=== PATIENT | female | born 1975 | race Caucasian/White ===

== ENCOUNTER 2023-10-23 05:45 | Day surgery (SDC) | payer MEDICAID ==
[2023-10-17 09:29] LABS: BASOPHILS % (AUTO) 0.3 % (0-1); EOSINOPHILS # (AUTO) 0.1 X10'3 (0-0.9); EOSINOPHILS % (AUTO) 2.3 % (0-6); LYMPHOCYTES # (AUTO) 1.6 X10'3 (1.1-4.8); LYMPHOCYTES % (AUTO) 32.7 % (21-51); MEAN CORPUSCULAR HEMOGLOBIN 29.2 PG (27.0-31.0); MEAN CORPUSCULAR HGB CONC 33.3 g/dL (33.0-36.5); MEAN CORPUSCULAR VOLUME 87.7 FL (78-98); MEAN PLATELET VOLUME 7.7 FL (7.4-10.4); MONOCYTES # (AUTO) 0.3 X10'3 (0-0.9); MONOCYTES % (AUTO) 5.5 % (2-12); NEUTROPHILS % (AUTO) 59.2 % (42-75); PRE OP HEMATOCRIT 34.8 % (35.0-45.0); PRE OP HEMOGLOBIN 11.6 g/dL (12.0-16.0); PRE OP PLATELET COUNT 350 X10'3 (140-440); RED BLOOD COUNT 3.97 X10'6 (4.20-5.60); RED CELL DISTRIBUTION WIDTH 13.3 % (11.5-14.5)
[2023-10-17 10:04] LABS: ALBUMIN/GLOBULIN RATIO 1.1 (1.1-1.5); ALKALINE PHOSPHATASE 74 IU/L (46-116); BLOOD UREA NITROGEN 9 MG/DL (7-18); BUN/CREATININE RATIO 10.3 (10.0-20.0); CALCIUM 8.5 MG/DL (8.5-10.1); CHLORIDE 106 MMOL/L (99-107); CREATININE 0.87 MG/DL (0.40-0.90); PRE OP ALT 11 U/L (30-65); PRE OP ANION GAP 8 (8-16); PRE OP AST 16 U/L (10-37); PRE OP BILIRUB, TOTAL 0.7 MG/DL (0.0-1.0); PRE OP GLUCOSE 94 MG/DL (70-104); PRE OP POTASSIUM 3.7 MMOL/L (3.4-5.1); PRE OP SODIUM 140 MMOL/L (135-145); TOTAL CARBON DIOXIDE 26.5 MMOL/L (24-32); TOTAL PROTEIN 7.5 G/DL (6.4-8.2); eGFR 70 ML/MIN
[2023-10-23] VITALS (9 sets, daily range): BP systolic 79–119; BP diastolic 32–70; PULSE 68–86; RESP 13–16; TEMP 98; O2SAT 93–100
[~2023-10-23] VITALS: Ht 167.6 cm; Wt 105.9 kg
[2023-10-23] MEDS: cefazolin 2gm/D5W 100mL 100 ML IV ONE (05:30)
[~2023-10-23 05:45] MED LIST: ACET-1025 PO; BETA15CR4 TOP; MULT-1085 PO; OMEP20CA16 PO; PSYL0.4C7; TIRZ5PEN3 IM
[2023-10-23] MEDS: ringers solution, lacted 1,000 ML IV SCH (06:24)
[2023-10-23] MEDS: famotidine 20mg tablet PO ONE (06:24)
[2023-10-23] MEDS ORDERED: LIDOcaine 1% (10mg/ml)w/preservative inj. 20ml MDV ONE (06:56)
[2023-10-23] MEDS ORDERED: BUPIVAcaine 2.5mg/ml inj 50ml vial (contains preservative) ONE (06:56)
[2023-10-23] MEDS ORDERED: BUPIVAcaine/PF 2.5mg/ml (0.25%) 10ml vial ONE (06:57)
[2023-10-23] MEDS ORDERED: fentaNYL/PF 50MCG/1 ML 2ML syringe ONE (07:18)
[2023-10-23] MEDS ORDERED: MIDAZolam 1 MG/ML 5ML VIAL ONE (07:18)
[2023-10-23] MEDS ORDERED: ondansetron/PF 4mg/2ml inj ONE (07:19)
[2023-10-23] MEDS ORDERED: LIDOcaine 2% (20mg/ml) 5ml vial ONE (07:19)
[2023-10-23] MEDS ORDERED: dexamethasone sod phosphate 4mg/ml inj. ONE (07:19)
[2023-10-23] MEDS ORDERED: propofol inj 20 ML IV ONE (07:19)
[2023-10-23] MEDS ORDERED: ringers solution, lacted 1,000 ML IV SCH (07:25)
[2023-10-23] MEDS ORDERED: morphine 4 MG/ML inj SYRINge IV PRN (07:25)
[2023-10-23] MEDS ORDERED: labetalol 20mg/4ml (5mg/ml) syringe IV PRN (07:25)
[2023-10-23] MEDS ORDERED: hydrALAZINE 20mg/ml inj. IV PRN (07:25)
[2023-10-23] MEDS ORDERED: morphine 2 MG/ML inj. syringe IV PRN (07:25)
[2023-10-23] MEDS ORDERED: fentaNYL/PF 50MCG/1 ML 2ML syringe IV PRN ×2 (07:25)
[2023-10-23] MEDS ORDERED: ondansetron/PF 4mg/2ml inj IV PRN (07:25)
[2023-10-23] MEDS ORDERED: sevoflurane 250ml liquid IH ONE (07:39)
[2023-10-23] MEDS ORDERED: acetaminophen 1,000mg/100ml IV 100 ML IV ONE (08:05)
[2023-10-23] MEDS: BUPIVAcaine/PF 2.5mg/ml (0.25%) 10ml vial IJ ONE (09:16)
== END 2023-10-23 10:13 | disposition home or self-care (01) ==
LOC: PAS 05:45
PROVIDERS: ATTEND Surgery
DX: N60.92 Unspecified benign mammary dysplasia of left breast (principal)
CPT/HCPCS: 19301; 36415; 80053; 82948; 85025; J0131; J0690; J1100; J2250; J2405; J2704; J3010; J3490; J7030; J7120; Z7506; Z7508; Z7512; A4215; A4618; A6449; A7000

== ENCOUNTER 2024-04-03 16:10 | Outpatient (CLI) | payer MEDICAID ==
[2024-04-03 16:42] LABS: BASOPHILS % (AUTO) 0.3 % (0-1); EOSINOPHILS # (AUTO) 0.3 X10'3 (0-0.9); EOSINOPHILS % (AUTO) 3.8 % (0-6); HEMATOCRIT 34.4 % (35.0-45.0); HEMOGLOBIN 11.8 g/dl (12.0-16.0); LYMPHOCYTES # (AUTO) 2.5 X10'3 (1.1-4.8); LYMPHOCYTES % (AUTO) 32.3 % (21-51); MEAN CORPUSCULAR HGB CONC 34.2 g/dL (33.0-36.5); MEAN CORPUSCULAR VOLUME 87.6 FL (78-98); MEAN PLATELET VOLUME 7.4 FL (7.4-10.4); MONOCYTES # (AUTO) 0.3 X10'3 (0-0.9); MONOCYTES % (AUTO) 4.3 % (2-12); NEUTROPHILS # (AUTO) 4.6 X10'3 (1.8-7.7); NEUTROPHILS % (AUTO) 59.3 % (42-75); PLATELET COUNT 370 X10'3 (140-440); RED BLOOD COUNT 3.93 X10'6 (4.20-5.60); RED CELL DISTRIBUTION WIDTH 13.3 % (11.5-14.5); WHITE BLOOD COUNT 7.8 X10'3 (4.5-11.0)
[2024-04-03 16:54] LABS: % IRON SATURATION 44 % (11-46); IRON 131 UG/DL (49-151); TOTAL IRON BINDING CAPACITY 296 UG/DL (259-388)
[2024-04-03 17:10] LABS: ALANINE AMINOTRANSFERASE 14 U/L (12-78); ALBUMIN/GLOBULIN RATIO 1.1 (1.1-1.5); ALKALINE PHOSPHATASE 84 IU/L (46-116); ANION GAP 12 (8-16); ASPARTATE AMINO TRANSFERASE 9 U/L (10-37); BILIRUBIN,TOTAL 0.6 MG/DL (0.1-1.0); BLOOD UREA NITROGEN 9 MG/DL (7-18); BUN/CREATININE RATIO 10.8 (10.0-20.0); CALCIUM 8.6 MG/DL (8.5-10.1); CHLORIDE 106 MMOL/L (99-107); CREATININE 0.83 MG/DL (0.40-0.90); FERRITIN 29 NG/ML (8-252); GLUCOSE 93 MG/DL (70-104); POTASSIUM 3.9 MMOL/L (3.5-5.1); SODIUM 142 MMOL/L (135-145); TOTAL CARBON DIOXIDE 24.3 MMOL/L (24-32); TOTAL PROTEIN 7.5 G/DL (6.4-8.2); eGFR 74 ML/MIN
== END 2024-04-03 23:59 | disposition home or self-care (01) ==
LOC: RAD 16:10
PROVIDERS: ATTEND Physician Assistant
DX: R42 Dizziness and giddiness (principal); D50.8 Other iron deficiency anemias; Z82.49 Family history of ischemic heart disease and other diseases of the circulatory system
CPT/HCPCS: 36415; 70450; 80053; 82728; 83540; 83550; 85025